=== PATIENT | female | born 1970 | race Caucasian/White ===

== ENCOUNTER 2020-01-03 04:32 | Inpatient (IN) | payer SELFPAY ==
[2019-12-30 17:28] VITALS: BMI 29.8
[2020-01-03] MEDS ORDERED: CEFAZOLIN 2 GM in DEXTROSE 5%-WATER - 100 ML IVPB ONE (06:49)
[2020-01-03] MEDS ORDERED: ceFAZolin SODIUM 1 GM VIAL ONE ×2 (07:09→18:31)
[2020-01-03] MEDS ORDERED: GENTAMICIN SO4 80 MG/2 ML VIAL ONE (07:12)
[2020-01-03] MEDS ORDERED: LIDOCAINE 1%/EPI 1:100000 (50 ML MULTI DOSE VIAL) ONE (07:13)
[2020-01-03] MEDS ORDERED: THROMBIN (BOVINE) 5,000 UNIT VIAL TP ONE ×2 (07:13→09:13)
[2020-01-03] MEDS ORDERED: fentaNYL CITRATE 250 MCG/5 ML VIAL ONE (07:26)
[2020-01-03] MEDS ORDERED: ROCURONIUM BROMIDE 50 MG/5 ML SYRINGE ONE (07:26)
[2020-01-03] MEDS ORDERED: DEXAMETHASONE SOD PHOSPHATE 4 MG/1 ML VIAL ONE (07:26)
[2020-01-03] MEDS ORDERED: ONDANSETRON 4 MG/2 ML VIAL ONE ×2 (07:26→10:15)
[2020-01-03] MEDS ORDERED: MIDAZOLAM HCL 2 MG/2 ML SINGLE DOSE VIAL ONE (07:26)
[2020-01-03] MEDS ORDERED: LIDOCAINE HCL/PF 2% SDV 5ML VIAL ONE (07:26)
[2020-01-03] MEDS ORDERED: PROPOFOL 20 ML ONE ×3 (07:26→07:52)
[2020-01-03] MEDS ORDERED: SCOPOLAMINE HYDROBROMIDE 1 PATCH PATCH.TD72 ONE (07:49)
--- NOTE | 2020-01-03 08:06 | HP ---
History & Physical Update - History History: No Change - Physical Physical: No Change - Assessment Assessment: No Change - Plan Plan: No Change (Full H&P in chart from Dr. Wright on 12/12/19)
[2020-01-03] MEDS ORDERED: ceFAZolin SODIUM 1 GM VIAL IVPB ONE (08:38)
[2020-01-03] MEDS ORDERED: VANCOMYCIN 1,000 MG VIAL (RESTRICTED TO ID ONLY) IVPB ONE (08:45)
[2020-01-03] MEDS ORDERED: GLYCOPYRROLATE 0.2 MG/1 ML VIAL ONE (10:19)
[2020-01-03] MEDS ORDERED: NEOSTIGMINE METHYLSULFATE 0.5 MG/1 ML - 10 ML MDV ONE (10:19)
[2020-01-03] MEDS ORDERED: diphenhydrAMINE HCL 25 MG CAPSULE (FP) PO PRN (10:49)
[2020-01-03] MEDS ORDERED: ONDANSETRON 4 MG/2 ML VIAL IVPUSH PRN (10:49)
[2020-01-03] MEDS ORDERED: oxyCODONE HCL 5 MG TABLET PO PRN ×2 (10:49→13:59)
[2020-01-03] MEDS ORDERED: morphine CARPU-JECT 4 MG/1 ML DISP.SYRIN IVPUSH PRN (10:49)
--- NOTE | 2020-01-03 10:58 | OP ---
Operative Note - Note: Operative Date: 01/03/20 Pre-Operative Diagnosis: Cervical spondylosis and kyphosis Operation: Spinal fusion, removal of hardware with C4 corpectomy with correction of reconstruction with cage and plate Post-Operative Diagnosis: Same as Pre-op Surgeon: Jay Arredondo Lubrication Technician: Mickey Arora Anesthesiologist/OCCUPATIONAL HEALTH PHYSIOTHERAPIST: Miguel A Zheng Anesthesia: General Estimated Blood Loss (mls): 100 Operative Report Dictated: Yes
[2020-01-03] MEDS ORDERED: morphine SULFATE 4 MG/ML VIAL IVPUSH PRN ×2 (11:49→13:59)
[2020-01-03] MEDS ORDERED: HEPARIN NA (PORCINE) 5,000 UNITS/ML 1ML VIAL SQ SCH (14:00)
[2020-01-03] MEDS: LACTATED RINGERS SOLUTION 1,000 ML/1,000 ML INFUS.BAG IV SCH ×2 (14:39→23:01)
[2020-01-03] MEDS: oxyCODONE HCL 5 MG TABLET PO PRN ×3 (15:01→23:00)
[2020-01-03] MEDS: DOCUSATE SODIUM 100 MG CAPSULE (FP) PO SCH ×2 (15:01→21:51)
[2020-01-03] MEDS ORDERED: CEFAZOLIN 1 GM/D5W 1 GM/50 ML BAG IVPB SCH (18:00)
[2020-01-03] MEDS ORDERED: DEXTROSE 5%-WATER - 50 ML IVPB ONE (18:31)
[2020-01-03] MEDS: CEFAZOLIN 1 GM in DEXTROSE 5%-WATER - 50 ML IVPB SCH (18:34)
[2020-01-04] MEDS ORDERED: ceFAZolin SODIUM 1 GM VIAL ONE ×2 (01:48→08:37)
[2020-01-04] MEDS ORDERED: DEXTROSE 5%-WATER - 50 ML IVPB ONE ×2 (01:48→08:37)
[2020-01-04] MEDS: CEFAZOLIN 1 GM in DEXTROSE 5%-WATER - 50 ML IVPB SCH ×2 (01:54→10:22)
[2020-01-04] MEDS: LEVOTHYROXINE NA 125 MCG TABLET (FP) PO SCH (06:46)
[2020-01-04] MEDS: DOCUSATE SODIUM 100 MG CAPSULE (FP) PO SCH ×3 (06:46→21:33)
[2020-01-04 07:29] LABS: HEMATOCRIT 32.2 % (32.4-45.2); HEMOGLOBIN 10.8 GM/dL (10.7-15.3); MCH 29.7 pg (25.7-33.7); MCHC 33.6 g/dl (32.0-36.0); MEAN CELL VOLUME 88.3 fl (80-96); MEAN PLT VOLUME 8.4 fl (7.5-11.1); PLATELET COUNT 272 K/MM3 (134-434); RBC 3.65 M/mm3 (3.60-5.2); RDW 13.3 % (11.6-15.6); WHITE BLOOD COUNT 13.7 K/mm3 (4.0-10.0)
[2020-01-04 07:53] LABS: BLOOD UREA NITROGEN 11.1 mg/dL (7-18); CREATININE 0.8 mg/dL (0.55-1.3)
--- NOTE | 2020-01-04 08:02 | PN ---
Progress Note (short form) - Note Progress Note: Anesthesia Post op/Pain Pt seen and examined S:Alert and awake comfortable O: Vital Signs Temperature 98.3 F 01/04/20 06:00 Pulse Rate 91 H 01/04/20 06:00 Respiratory Rate 01/04/20 06:00 Blood Pressure 113/75 01/04/20 06:00 O2 Sat by Pulse Oximetry (%) 99 01/04/20 06:00 CBC, BMP 01/04/20 06:20 01/04/20 06:20 A/P: s/p Anterior fusion Doing well post op Continue current care Brooks Solano MD
[2020-01-04] MEDS ORDERED: PT OWN MED DRAWER 7, Y5N ONE ×4 (08:37→19:33)
--- NOTE | 2020-01-04 09:10 | PN ---
Progress Note (short form) - Note Progress Note: Surgery POD #1 Spinal fusion, removal of hardware with C4 corpectomy with correction of reconstruction with cage and plate. Patient seen and examined on AM rounds c/o some general itchiness and muscle spasms over her left shoulder and scapula. Her pain is controlled and she is tolerating her regular diet. She has not been OOB yet. She denies any CP, SOB, fever, chills, N/V/D. Vital Signs Temp 98.3 F 01/04/20 06:00 Pulse 91 H 01/04/20 06:00 Resp 20 01/04/20 06:00 BP 113/75 01/04/20 06:00 Pulse Ox 99 01/04/20 06:00 Intake & Output 01/03/20 01/03/20 01/04/20 11:59 23:59 11:59 Intake Total 1800 750 50 Output Total 250 10 20 Balance 1550 740 30 Intake: IV 1800 750 LACTATED RINGERS SOLUTION 750 1,000 ml In 1,000 ml @ 125 mls/hr IV ASDIR MANE Rx#:[id number] IVPB 50 Output: Drainage 10 20 Neck 20 Urine 150 0 Estimated Blood Loss 100 Other: Voiding Method Toilet Toilet # Unmeasured Voids Void 1 Weight Measurement Method Standing Scale CBC, BMP 01/04/20 06:20 01/04/20 06:20 PE: A&Ox3, NAD Unlabored resp on RA anterior neck: dressing c/d/i with surrounding tissue intact and no evidence of tracking erythema, edema collection or d/c. Drain secure in good position at right side. trachea midline B/L UE 5/5 shoulder shrug, biceps, triceps and cane burner strength B/L LE compartments soft, supple and non-tender with +2 DP pulses. Problem List - Problems (1) S/P cervical spinal fusion Assessment/Plan: POD #1 NGUYEN with ACDF doing well. -C-collar 23 hours/day -drain empty and measure -Benadryl for itching -OOB with PT -encourage IS -DVT prophylasix -d/c planning for home Evaluation and plan discussed with Dr Arredondo Code(s): Z98.1 - ARTHRODESIS STATUS
[2020-01-04] MEDS ORDERED: LEVOTHYROXINE NA 125 MCG TABLET (FP) PO SCH (10:00)
[2020-01-04] MEDS ORDERED: FLUTICASONE PROP 0.05% 16 GM NASAL SPRAY NS SCH (10:00)
[2020-01-04] MEDS ORDERED: PSEUDOEPHEDRINE HCL 60 MG TABLET PO SCH (10:00)
[2020-01-04] MEDS ORDERED: TRIAMTERENE AND HCTZ - 37.5 MG/25 MG CAPSULE PO SCH (10:00)
[2020-01-04] MEDS: FERROUS SO4 325 MG TABLET (FP) PO SCH (10:21)
[2020-01-04] MEDS: TRIAMTERENE AND HCTZ - 37.5 MG/25 MG CAPSULE PO SCH (10:21)
[2020-01-04] MEDS: FOLIC ACID 1 MG TABLET (FP) PO SCH (10:22)
[2020-01-04] MEDS: LACTATED RINGERS SOLUTION 1,000 ML/1,000 ML INFUS.BAG IV SCH (10:23)
[2020-01-04] MEDS: HEPARIN NA (PORCINE) 5,000 UNITS/ML 1ML VIAL SQ SCH ×3 (10:24→21:33)
[2020-01-04] MEDS: LORATADINE 10 MG TABLET PO SCH (10:26)
[2020-01-04] MEDS ORDERED: METHOCARBAMOL 750 MG TABLET PO PRN (11:10)
[2020-01-04] MEDS ORDERED: ACETAMINOPHEN 325 MG TABLET (FP) PO PRN (11:12)
[2020-01-04] MEDS: oxyCODONE HCL 5 MG TABLET PO PRN ×3 (13:38→21:33)
[2020-01-04] MEDS: METHOCARBAMOL 500 MG TABLET PO PRN (13:39)
[2020-01-04] MEDS: FLUTICASONE PROP 0.05% 16 GM NASAL SPRAY NS SCH (14:51)
[2020-01-04] MEDS: MENTHOL/PHENOL 1 EACH UD MM PRN (16:52)
[2020-01-05] MEDS: oxyCODONE HCL 5 MG TABLET PO PRN ×3 (01:24→10:00)
[2020-01-05] MEDS ORDERED: PT OWN MED DRAWER 7, Y5N ONE (02:56)
[2020-01-05] MEDS: MENTHOL/PHENOL 1 EACH UD MM PRN (03:04)
[2020-01-05] MEDS: HEPARIN NA (PORCINE) 5,000 UNITS/ML 1ML VIAL SQ SCH ×2 (05:26→13:16)
[2020-01-05] MEDS: DOCUSATE SODIUM 100 MG CAPSULE (FP) PO SCH ×2 (05:27→13:16)
[2020-01-05] MEDS: METHOCARBAMOL 500 MG TABLET PO PRN ×2 (05:28→13:15)
[2020-01-05] MEDS: LEVOTHYROXINE NA 125 MCG TABLET (FP) PO SCH (06:24)
--- NOTE | 2020-01-05 09:20 | DS ---
Physical Exam: SUBJECTIVE: Patient seen and examined. Patient seen and examined on AM rounds. Reports she is feeling "okay". No issues overnight. Continues to have some trouble swallowing food (eggs, was able to eat yogurt). Having some difficulty getting out of bed, requesting PT to show her how to get out of bed easier. Pain is controlled. Voiding without issue. Has some muscle spasms in her shoulders, improving with home muscle relaxant. She denies any CP, SOB, fever, chills, N/V/D. OBJECTIVE: Vital Signs Temperature 98.9 F 01/05/20 06:00 Pulse Rate 84 01/05/20 06:00 Respiratory Rate 20 01/05/20 06:00 Blood Pressure 132/65 01/05/20 06:00 O2 Sat by Pulse Oximetry (%) 94 L 01/05/20 06:00 PHYSICAL EXAM GENERAL: The patient is awake, alert, and fully oriented, in no acute distress. HEAD: Normal with no signs of trauma. NECK: Gaines J collar in place, dressing c/d/i, no surrounding ecchymosis or erythema. LUNGS: no accessory muscle use on RA HEART: Regular rate and rhythm ABDOMEN: Soft, nontender, nondistended, normoactive bowel sounds, no guarding, no rebound EXT: B/l ue maintenance engineer oil field strength intact and equal, 5/5 biceps/triceps/deltoids, silt b/l, shoulder shrug strong and equal. B/L les 5/5 dorsi/plantarflexion, silt b/l. LABS CBC,CMP WBC 13.7 K/mm3 (4.0-10.0) H 01/04/20 06:20 RBC 3.65 M/mm3 (3.60-5.2) 01/04/20 06:20 Hgb 10.8 GM/dL (10.7-15.3) 01/04/20 06:20 Hct 32.2 % (32.4-45.2) L 01/04/20 06:20 MCV 88.3 fl (80-96) 01/04/20 06:20 MCH 29.7 pg (25.7-33.7) 01/04/20 06:20 MCHC 33.6 g/dl (32.0-36.0) 01/04/20 06:20 RDW 13.3 % (11.6-15.6) 01/04/20 06:20 Plt Count 272 K/MM3 (134-434) 01/04/20 06:20 MPV 8.4 fl (7.5-11.1) 01/04/20 06:20 Sodium 141 mmol/L (136-145) 01/04/20 06:20 Potassium 4.0 mmol/L (3.5-5.1) 01/04/20 06:20 Chloride 106 mmol/L (98-107) 01/04/20 06:20 Carbon Dioxide 30 mmol/L (21-32) 01/04/20 06:20 Anion Gap 6 MMOL/L (8-16) L 01/04/20 06:20 BUN 11.1 mg/dL (7-18) 01/04/20 06:20 Creatinine 0.8 mg/dL (0.55-1.3) 01/04/20 06:20 Est GFR (CKD-EPI)AfAm 100.33 01/04/20 06:20 Est GFR (CKD-EPI)NonAf 86.57 01/04/20 06:20 Random Glucose 92 mg/dL (74-106) 01/04/20 06:20 Calcium 8.0 mg/dL (8.5-10.1) L 01/04/20 06:20 HOSPITAL COURSE: Date of Admission:01/03/20 Date of Discharge: 01/05/20 The patient was admitted to the Med-Surg Unit after an elective repair of her Cervical spondylosis and kyphosis. Now, s/p removal of hardware with C4 corpectomy and C3-[address] A post operative ct scan was obtained and confirmed hardware placement, no fractures or dislocations. The day of surgery, the patient ambulated with assistance. Narcotic and non- narcotic pain management control was achieved with an oral and IV approach. POD #1, the surgical drain was removed fully intact and without incident. Bessie-operative IV ABX were administered. DVT prophylaxis was achieved with SCDs, heparin sq and early ambulation. The patient ambulated with Physical Therapy and no services were recommended upon discharge. Narcotic scripts and or muscle relaxants were checked with [place] [employer] prior to escribe. The discharge instructions and an oral pain management plan were reviewed with the patient. All questions answered. Above plan discussed with Dr. Arredondo and agreed. Minutes to complete discharge: 35
[2020-01-05] MEDS: TRIAMTERENE AND HCTZ - 37.5 MG/25 MG CAPSULE PO SCH (10:01)
[2020-01-05] MEDS: FERROUS SO4 325 MG TABLET (FP) PO SCH (10:01)
[2020-01-05] MEDS: LORATADINE 10 MG TABLET PO SCH (10:01)
[2020-01-05] MEDS: FLUTICASONE PROP 0.05% 16 GM NASAL SPRAY NS SCH (10:01)
[2020-01-05] MEDS: FOLIC ACID 1 MG TABLET (FP) PO SCH (10:01)
[2020-01-05 13:59] VITALS: BP 109/78; PULSE 93; TEMP 98.8
== END 2020-01-05 16:51 | disposition home or self-care (01) | DRG 321 ==
LOC: J2C 04:32 → J8W 14:15
PROVIDERS: ADMIT Neurological Surgery; ATTEND Neurological Surgery
PROC: 0RG10A0 Fusion of Cervical Vertebral Joint with Interbody Fusion Device, Anterior Approach, Anterior Column, Open Approach (ICD-10-PCS; 2020-01-03)
PROC: 0RG1070 Fusion of Cervical Vertebral Joint with Autologous Tissue Substitute, Anterior Approach, Anterior Column, Open Approach (ICD-10-PCS; 2020-01-03)
PROC: 0PB30ZZ Excision of Cervical Vertebra, Open Approach (ICD-10-PCS; 2020-01-03)
PROC: 00NW0ZZ Release Cervical Spinal Cord, Open Approach (ICD-10-PCS; 2020-01-03)
PROC: 0PS304Z Reposition Cervical Vertebra with Internal Fixation Device, Open Approach (ICD-10-PCS; 2020-01-03)
PROC: B01BZZZ Fluoroscopy of Spinal Cord (ICD-10-PCS; 2020-01-03)
PROC: 4A1004G Monitoring of Central Nervous Electrical Activity, Intraoperative, Open Approach (ICD-10-PCS; 2020-01-03)
PROC: 0RP104Z Removal of Internal Fixation Device from Cervical Vertebral Joint, Open Approach (ICD-10-PCS; principal; 2020-01-03 08:00)
DX: M47.812 Spondylosis without myelopathy or radiculopathy, cervical region (principal); M40.292 Other kyphosis, cervical region; M50.221 Other cervical disc displacement at C4-C5 level
CPT/HCPCS: 36415; 72125-TC; 76000-TC-FY; 80048; 85027; 86850; 86900; 86901; 94010; 94760; 97116-GP; 97161-GP; J1644

== ENCOUNTER 2020-01-08 08:42 | Emergency (ER) | payer BC ==
[2020-01-08 08:50] VITALS: BP 112/54; TEMP 97; BMI 32.3
--- OUTSIDE RECORDS SUMMARY | 2020-01-08 09:01 | XMS ---
:1970 Author Organization [facility] Support Name Relationship Address Phone [facility] Unavailable [employer] [address] PRAVEENA RAYMOND SPOUSE [address] [place] [address] PRAVEENA RAYMOND Spouse [address] [place] [address] Re-disclosure Warning The records that you are about to access may contain information from federally- assisted alcohol or drug abuse programs. If such information is present, then the following federally mandated warning applies: This information has been disclosed to you from records protected by federal confidentiality rules (42 CFR part 2). The federal rules prohibit you from making any further disclosure of this information unless further disclosure is expressly permitted by the written consent of the person to whom it pertains or as otherwise permitted by 42 CFR part 2. A general authorization for the release of medical or other information is NOT sufficient for this purpose. The Federal rules restrict any use of the information to criminally investigate or prosecute any alcohol or drug abuse patient.The records that you are about to access may contain highly sensitive health information, the redisclosure of which is protected by Article 27-F of the [facility] Public Health law. If you continue you may haveaccess to information: Regarding HIV / AIDS; Provided by facilities licensed or operated by the [facility] Office of Mental Health; or Provided by the [facility] Office for People With Developmental Disabilities. If such information is present, then the following [facility] mandated warning applies: This information has been disclosed to you from confidential records which are protected by state law. State law prohibits you from making any further disclosure of this information without the specific written consent of the person to whom it pertains, or as otherwise permitted by law. Any unauthorized further disclosure in violation of state law may result in a fine or prison sentence or both. A general authorization for the release of medical or other information is NOT sufficient authorization for further disclosure. Insurance Providers Payer name Policy type Policy ID Covered Covered constitution party's Policy P bernardino / Coverage constitution party ID relationship to [employer] Inf ormation type colby BC OUT OF [id number] S [id number] [id number] SELF PAY SP INSURANCE
--- NOTE | 2020-01-08 10:00 | PDOC ---
History of Present Illness - General Chief Complaint: Foreign Body (FB) Stated Complaint: THROAT PROBLEM History Source: Patient Exam Limitations: No Limitations - History of Present Illness Initial Comments: 01/08/20 09:56 49-year-old female presents to ED with complaints of difficulties swallowing after taking Percocet and Flexeril last evening. Patient status post corpectomy with spinous fusion done by Dr. Do 5 days prior. patient denies any difficulty breathing difficulty eating or swelling of the area prior to last night went she took her pills. Patient states is continue to drink water which she is tolerating but still has a sensation as if something is stuck in her throat. Patient has no other complaints at this time. Is this a multiple visit Asthma Patient?: No Timing/Duration: 4-6 hours Severity: mild Associated Symptoms: reports: denies symptoms Past History - Travel History Traveled outside of the country in the last 30 days: No Close contact w/someone who was outside of country & ill: No - Medical History Allergies/Adverse Reactions: Allergies Allergy/AdvReac Type Severity Reaction Status Date / Time Sulfa (Sulfonamide Allergy Severe Rash Verified 01/08/20 08:50 Antibiotics) latex Allergy Intermediate Rash Verified 01/08/20 08:50 Home Medications: Ambulatory Orders Diphenhydrate 50 mg PO DAILY 12/30/19 Fexofenadine/Pseudoephedrine [Anahi-D 12 Hour Tablet] 1 each PO DAILY 12/30/19 Fluticasone Prop 0.05% Nasal [Flonase -] 1 - 2 spray NS DAILY 12/30/19 Folate Methlyate 1 cap PO DAILY 12/30/19 Hydrocodone/Acetaminophen [Walnut 5-325 Tablet] 1 each PO Q6H 12/30/19 Levothyroxine [Synthroid -] 125 mcg PO DAILY 12/30/19 Methocarbamol 750 mg PO QID PRN 12/30/19 Pseudoephedrine HCl [Sudafed] 125 mg PO DAILY 12/30/19 Triamterene/Hydrochlorothiazid [Dyazide 37.5-25 Capsule] 1 each PO DAILY 12/30/19 oxyCODONE HCL [Roxicodone -] 5 mg PO Q6H PRN #20 tablet MDD 8 01/05/20 Anemia: No (past) Asthma: No Cancer: No (pre cervical) Cardiac Disorders: No CVA: No COPD: No CHF: No Dementia: No Diabetes: No GI Disorders: Yes (IBS, Peptic Ulcer) Disorders: No HTN: No Hypercholesterolemia: No Liver Disease: No Seizures: No Thyroid Disease: Yes - Surgical History Abdominal Surgery: No Appendectomy: No Cardiac Surgery: No Cholecystectomy: No Lung Surgery: No Neurologic Surgery: No Orthopedic Surgery: Yes (Thoracic Spine with rods and pins (2009), Cervical Fusion w.cage (2008)) - Reproductive History Is Patient Now?: No - Psycho-Social/Smoking History Patient Lives Alone: No Lives with/in: spouse/SO Smoking History: Never smoked Review of Systems - Review of Systems Able to Perform ROS?: Yes Is the patient limited Japanese proficient: Yes Constitutional: No: Symptoms Reported HEENTM: Yes: Difficulty Swallowing Respiratory: No: Symptoms reported Cardiac (ROS): No: Symptoms Reported ABD/GI: No: Symptoms Reported : No: Symptoms Reported Musculoskeletal: No: Symptoms Reported Integumentary: No: Symptoms Reported Neurological: No: Symptoms reported Endocrine: No: Symptoms Reported *Physical Exam - Vital Signs Last Vital Signs Temp Pulse Resp BP Pulse Ox 97 F L 106 H 18 112/54 L 99 01/08/20 08:46 01/08/20 08:46 01/08/20 08:46 01/08/20 08:46 01/08/20 08:46 - Physical Exam General Appearance: Yes: Nourished, Appropriately Dressed. No: Apparent Distress HEENT: positive: Pharynx Normal. negative: Pale Conjunctivae, Pharyngeal Erythema (Uvula midline) Neck: positive: Supple Respiratory/Chest: positive: Lungs Clear, Normal Breath Sounds. negative: Respiratory Distress, Accessory Muscle Use, Decreased Breath Sounds, Stridor Cardiovascular: positive: Regular Rhythm, Regular Rate. negative: Murmur Integumentary: positive: Normal Color, Warm, Moist, Other (Intact anterior cervical dressing noted) Neurologic: positive: Motor Strength 5/5 (Ambulatory) ED Treatment Course - RADIOLOGY Radiology Studies Ordered: Category Date Time Status NECK SOFT TISSUE [RAD] Stat Radiology 01/08/20 09:44 Ordered Medical Decision Making - Medical Decision Making 01/08/20 10:05 Chief complaint: Patient status post corpectomy and spinal fusion this past Thursday performed by Dr. Do presenting to ED ED complaining of difficulty swallowing her tablets which she states had no difficulty following surgery patient has no other complaints except for. The above. Exam: Patient with normal physical exam intact anterior cervical dressing noted. Patient in c-collar in correct position. Plan: Soft tissue neck to rule out foreign body, airway narrowing, or air 01/08/20 10:46 . X-ray shows no acute pathology. Case discussed with Dr. Do and states he will have patient follow-up in the office either Thursday or Thursday. He also discussed reassuring patient the imaging was intact and scarring along with swelling is to be expected as this is her second spinal fusion or corpectomy and it also involved C4 level which involved extending the hypopharynx. Patient given diet recommendations, try to stay in the upright position, and her follow-up this upcoming week Discharge - Discharge Information Problems reviewed: Yes Clinical Impression/Diagnosis: S/P cervical spinal fusion Condition: Good Disposition: HOME - Follow up/Referral Referrals: ON STAFF,NOT [Primary Care Provider] - - Patient Discharge Instructions Patient Printed Discharge Instructions: Full Liquid Diet Additional Instructions: At this time please try to include protein and vegetables with every meal intake and try doing small frequent meals throughout the day you may also apply a small ice pack to the anterior aspect of your neck to alleviate swelling and provide comfort Try to remain upright for most of the day. - Post Discharge Activity
[2020-01-08 11:09] VITALS: PULSE 94
== END 2020-01-08 11:09 | disposition home or self-care (01) ==
LOC: JER 08:42
DX: R09.89 Other specified symptoms and signs involving the circulatory and respiratory systems (principal); Z98.1 Arthrodesis status
CPT/HCPCS: 70360-TC-FY; 99283-25